=== PATIENT | male | born 1975 | race Caucasian/White ===

== ENCOUNTER 2021-01-05 19:07 | Emergency (ER) | payer OTHER ==
[2021-01-05] MEDS ORDERED: Lidocaine 1% w/Epinephrine 1:100K 20 ML VIAL ONE (19:33)
[2021-01-05] MEDS ORDERED: Boostrix 0.5 ML (Tdap) VIAL ONE (19:33)
== END 2021-01-05 20:31 | disposition home or self-care (01) ==
LOC: ERS 19:07
DX: S01.81XA Laceration without foreign body of other part of head, initial encounter (principal); R68.84 Jaw pain; I10 Essential (primary) hypertension; W22.8XXA Striking against or struck by other objects, initial encounter
CPT/HCPCS: 12013; 90471; 90715